=== PATIENT | female | born 1955 | race Caucasian/White ===

== ENCOUNTER 2022-06-05 23:17 | Emergency (ER) | payer OTHER ==
[2022-06-05 23:25] VITALS: BP 129/79; PULSE 59; RESP 18; TEMP 97.7; BMI 17.2
== END 2022-06-05 23:52 | disposition home or self-care (01) ==
LOC: FER 23:17
DX: H61.21 Impacted cerumen, right ear (principal)
CPT/HCPCS: 99283-25